=== PATIENT | male | born 1960 | race Hispanic/Latino ===

== ENCOUNTER → 2025-05-23 | Outpatient (CLI) | payer BC ==
[~2025-05-23] MED LIST: ASPI-449 PO; CHOL500051 PO; FLUO-341 PO; LEVO125T98 PO; LORA2TAB80 PO; MAGN71.52 PO; OMEG100033 PO; RAME8TAB24 PO; ROSU10TA72 PO; SILD100T PO
--- NOTE | 2025-05-24 06:49 | HMCIMG ---
EXAM: CR Cervical spine, 5 views. CLINICAL HISTORY: Pain. COMPARISON: None provided. FINDINGS: Mild loss of the normal cervical lordosis. Subtle retrolisthesis of the C5 vertebral body. Multilevel anterior osteophytes. Mild reduction in C5-C6 intervertebral disc height. Normal vertebral body heights. No acute fracture. The prevertebral soft tissues are within normal limits. The included lungs are clear. IMPRESSION: 1. No acute fracture. Subtle retrolisthesis of the C5 vertebral body. 2. Mild loss of the normal cervical lordosis could be secondary to muscular spasm. 3. Mild cervical spondylosis predominantly at the C5-C6 level. /[place]
--- NOTE | 2025-05-24 06:49 | HMCIMG ---
EXAM: CR Lumbar Spine, 4 views. CLINICAL HISTORY: Pain. COMPARISON: None provided. FINDINGS: Grade 1 anterolisthesis of L4 over L5 vertebral body by 5 mm. Multilevel anterior osteophytes. Normal intervertebral disc spaces. Normal vertebral body heights. No acute fracture. Soft tissues are within normal limits. IMPRESSION: 1. No acute bony changes. 2. Grade 1 anterolisthesis of L4 over L5 vertebral body by 5 mm. [facility]
== END | disposition home or self-care (01) ==
LOC: RAH 10:58
PROVIDERS: ATTEND Physical Medicine & Rehabilitation
DX: M47.812 Spondylosis without myelopathy or radiculopathy, cervical region (principal); M48.061 Spinal stenosis, lumbar region without neurogenic claudication; M43.16 Spondylolisthesis, lumbar region; M25.78 Osteophyte, vertebrae; M48.062 Spinal stenosis, lumbar region with neurogenic claudication; R29.898 Other symptoms and signs involving the musculoskeletal system; M54.2 Cervicalgia; M54.51 Vertebrogenic low back pain; M54.16 Radiculopathy, lumbar region
CPT/HCPCS: 72050; 72114

== ENCOUNTER → 2025-06-11 | Outpatient (CLI) | payer BC ==
--- NOTE | 2025-06-12 11:34 | HMCIMG ---
EXAM: MR Lumbar Spine Without Intravenous Contrast. CLINICAL HISTORY: Spinal stenosis in the lumbar region with neurogenic claudication. TECHNIQUE: Magnetic resonance images of the lumbar spine in multiple planes. CONTRAST: None. COMPARISON: Radiograph dated May 23, 2025. FINDINGS: For this examination, spinal levels were labeled assuming five [id number], lumbar-type vertebrae, with the inferior labeled L5. No acute fracture. Mild degenerative anterolisthesis of L4 over L5. Mild multilevel spondylosis is evident by small marginal osteophytes. Multilevel disc desiccation noted. Mild degenerative disc height reduction at the L4-L5 level. Facet joint arthropathy and mild facet joint synovitis at the L4-L5 level. Normal vertebral body and remaining disc heights. Modic type I changes in the contiguous endplates at the level. Hemangiomas are noted in the T11, L1, L4, and L5 vertebral bodies. Conus medullaris terminates at the T12-L1 level. No abnormal epidural masses. Small, left external pelvis noted. Individual spinal levels are described as follows: T12-L1: No disc bulge or herniation. No neural foraminal, lateral recess, or spinal canal stenosis. L1-L2: No disc bulge or herniation. No neural foraminal, lateral recess, or spinal canal stenosis. L2-L3: No disc bulge or herniation. No neural foraminal, lateral recess, or spinal canal stenosis. L3-L4: No disc bulge or herniation. No neural foraminal, lateral recess, or spinal canal stenosis. L4-L5: 7 mm anterolisthesis of L4 over L5 with uncovering of the posterior disc, ligamentum flavum thickening, and facet joint arthropathy, causing moderate canal narrowing with compression of the cauda equina and mild bilateral foraminal narrowing. No lateral recess stenosis. L5-S1: 4 mm disc osteophyte complex bulge and facet joint arthropathy causing mild indentation on the anterior thecal sac and mild bilateral foraminal narrowing. No lateral recess stenosis. IMPRESSION: Redemonstrated mild degenerative anterolisthesis of L4 over L5. Redemonstrated mild multilevel spondylosis. Multilevel disc desiccation. Mild degenerative disc height reduction at the L4-L5 level. Facet joint arthropathy and mild facet joint synovitis at the L4-L5 level. Moderate canal narrowing with compression of the cauda equina and mild bilateral foraminal narrowing at the L4-L5 level. Mild indentation on the anterior thecal sac and mild bilateral foraminal narrowing at the L5-S1 level. /[place]
== END | disposition home or self-care (01) ==
LOC: RAH 13:50
PROVIDERS: ATTEND Physical Medicine & Rehabilitation
DX: M47.816 Spondylosis without myelopathy or radiculopathy, lumbar region (principal); M48.062 Spinal stenosis, lumbar region with neurogenic claudication; M43.16 Spondylolisthesis, lumbar region; M65.98 Unspecified synovitis and tenosynovitis, other site; M51.369 Other intervertebral disc degeneration, lumbar region without mention of lumbar back pain or lower extremity pain; G83.4 Cauda equina syndrome; D18.09 Hemangioma of other sites; M51.379 Other intervertebral disc degeneration, lumbosacral region without mention of lumbar back pain or lower extremity pain; M48.07 Spinal stenosis, lumbosacral region; R29.898 Other symptoms and signs involving the musculoskeletal system
CPT/HCPCS: 72148

== ENCOUNTER 2025-09-08 22:58 | Emergency (ER) | payer BC, MEDICARE ==
[~2025-09-08] VITALS: Ht 165.1 cm; Wt 72.6 kg
--- NOTE | 2025-09-08 23:31 | NUR ---
ENEMA ADMINISTERED ORDERED
--- NOTE | 2025-09-09 00:30 | NUR ---
PATIENT HAD BOWEL MOVEMENT, REPORTED FEELING RELIEF
[2025-09-09 00:37] LABS: CREATININE 0.8 mg/dL (0.5-1.3); GLOMERULAR FILTR. RATE CALC 98.0 mL/min (>90); GLUCOSE,RANDOM 153.0 mg/dL (70-105); SODIUM SERUM 138.0 mmol/L (136-145); UREA NITROGEN, BLOOD 18.0 mg/dL (7-18)
[2025-09-09 00:42] LABS: ASPARTATE AMINOTRANSFERASE 33.0 U/L (10-37); TOTAL PROTEIN, SERUM 7.2 g/dL (6.0-8.3)
--- NOTE | 2025-09-09 00:50 | ERN ---
ED Note History of Present Illness Stated Complaint: CONSTIPATION Chief Complaint: Constipation Time Seen by MD: 23:31 Time Seen by Midlevel: 23:31 Dictation: The patient is a 65-year-old male who recently had lower back surgery in [place] who presents to the emergency department with complaints of constipation. Patient has been on hydrocodone for pain and has not had a bowel movement in five days. Patient reports generalized abdominal pain, denies any nausea or vomiting, denies any problems with the his back. Patient is ambulatory. Allergies: Coded Allergies: No Known Allergies (Unverified Allergy, Unknown, 04/27/25) Home Meds Active Scripts Lactulose (Lactulose) 10 Gram/15 Ml Solution, 30 ML PO BID for constipation, #500 ML 0 Refills Prov:MICHELLE SALEH ENTRY LEVEL MACHINE OPERATOR 09/09/25 Reported Medications Aspirin (Adult Low Dose Aspirin EC) 81 Mg Tablet.dr, 1 TAB PO DAILY for 30 Days, #30 TAB 0 Refills 04/28/25 [place]-3/Dha/Epa/Fish Oil (Fish Oil 1,000 mg Softgel) 1,000 Mg (120 Mg-180 Mg) Capsule, 1 CAP PO BID for 30 Days, #60 CAP 0 Refills 04/28/25 Magnesium Chloride (Slow-Mag) 71.5 Mg Tablet.dr, 71.5 MG PO DAILY, TAB 04/28/25 Cholecalciferol (Vitamin D3) (Vitamin D3) 125 Mcg (5000 Unit) Capsule, 1 CAP PO DAILY for 30 Days, #30 CAP 0 Refills 04/28/25 Ramelteon (Ramelteon) 8 Mg Tablet, 1 TAB PO HS 04/28/25 Sildenafil Citrate (Viagra) 100 Mg Tablet, 1 TAB PO DAILY 04/28/25 Lorazepam (Ativan) 2 Mg Tablet, 1 TAB PO HS PRN for ANXIETY 04/28/25 Levothyroxine Sodium (Unithroid) 125 Mcg Tablet, 1 TAB PO DAILY 04/28/25 Rosuvastatin Calcium (Rosuvastatin Calcium) 10 Mg Tablet, 1 TAB PO HS 04/28/25 Fluoxetine HCl (Fluoxetine HCl) 10 Mg Capsule, 1 CAP PO DAILY 04/28/25 Past Medical History Past Medical History: High Cholesterol Surgical History: None RN Note Reviewed/Agreed w/PFSH: Yes Review of System Dictation Constitutional: Negative for fever,chills, and weight loss Eyes: Negative for injury, pain,redness, and discharge ENT: Negative for injury,pain or swelling Cardiovascular: Negative for chest pain, palpitations, and edema Respiratory: Negative for shortness of breath, cough, and wheezing, Abdomen/GI: Negative for nausea, vomiting, diarrhea positive for abdominal pain, constipation Back: Negative for injury and pain : Negative for injury, bleeding and discharge MS/Extremity: Negative for injury and deformity Skin: Negative for rash, and discoloration Neuro: Negative for headache, weakness, numbness, tingling, and seizure Psych: Negative for suicide ideation, homicidal ideation, and hallucinations Initial Vital Sign VS Vital Signs Date Time Temp Pulse Resp B/P (MAP) Pulse Ox O2 Delivery O2 Flow Rate FiO2 09/08/25 23:02 98.2 62 18 145/66 96 Room Air* 0 21 Physical Exam Dictation Vital Signs reviewed General Appearance: Alert, oriented x 3, no acute distress, well developed, nourished. Head and Face: non-traumatic. Eyes: PERRL, pink conjunctivas, eyelid no trauma, anterior chamber with arcus senilis. Ears: Pinnas intact and no signs of trauma or erythema ear canals clear and no discharge TM no erythema Nose: No discharge, no bleeding. Oropharynx: Mouth normal, tongue pink. pharynx clear,no erythema, tonsils no exudates, no abscesses noted, mucous membrane moist Neck: Supple, non-tender, no thyromegaly, no masses, no JVD, no bruits Breast:Deferred Chest:No tenderness, no crepitus, no paradoxical movement, no retractions Lungs:Clear, well-ventilated, symmetric, no rales, no wheezing, no rhonchi, no stridor, good breath sounds bilaterally Heart: Regular rate, regular rhythm, no murmur, no gallops Vascular: no peripheral edema, Abdomen: Soft positive bowel sounds, distended, no guarding, nontender, no rebound, no masses no hepatomegaly, no splenomegaly, no Yousif's sign, no hernias. Rectal: Deferred Genital: Deferred Neurological: Normal speech, motor function intact, sensory function intact Musculoskeletal: Neck nontender, full range of motion, back nontender, full range of motion, Extremities: nontender, full range of motion Skin: Color pink, dry, no turgor, no rash, no lacerations, no abrasions, no contusions. Lymphatic: Deferred Results (Laboratory/Radiology) Laboratory/Radiology Laboratory Tests Test 09/09/25 00:21 09/09/25 01:12 White Blood Count 9.0 K/uL (4.8-10.8) Red Blood Count 4.45 MIL/uL (4.50-6.20) L Hemoglobin 13.8 g/dL (14.0-18.0) L Hematocrit 40.9 % (42-54) L Mean Corpuscular Volume 91.9 fL (79-99) Mean Corpuscular Hemoglobin 31.0 pg (27.0-33.0) Mean Corpuscular Hemoglobin Concent 33.7 g/dL (32.0-36.0) Red Cell Distribution Width 12.1 % (11.0-15.5) Platelet Count 262 K/uL (130-400) Mean Platelet Volume 10.5 fL (7.5-10.5) Immature Granulocyte % (Auto) 0.2 % (0-1) Neutrophils (%) (Auto) 77.0 % (40.0-77.0) Lymphocytes (%) (Auto) 14.2 % (21.0-51.0) L Monocytes (%) (Auto) 7.3 % (3.0-13.0) Eosinophils (%) (Auto) 0.9 % (0.0-8.0) Basophils (%) (Auto) 0.4 % (0.0-5.0) Neutrophils # (Auto) 6.9 K/uL (1.8-7.7) Lymphocytes # (Auto) 1.3 K/uL (1.0-4.8) Monocytes # (Auto) 0.7 K/uL (0.1-1.0) Eosinophils # (Auto) 0.08 K/uL (0.00-0.70) Basophils # (Auto) 0.04 K/uL (0.00-0.20) Absolute Immature Granulocyte (auto 0.02 K/uL (0-1) Nucleated Red Blood Cells 0.0 % (0.0-0.19) Sodium Level 138 mmol/L (136-145) Potassium Level 4.4 mmol/L (3.5-5.1) Chloride Level 99 mmol/L (101-111) L Carbon Dioxide Level 33 mmol/L (21-32) H Blood Urea Nitrogen 18 mg/dL (7-18) Creatinine 0.8 mg/dL (0.5-1.3) Glomerular Filtration Rate Calc 98 mL/min (>90) Random Glucose 153 mg/dL (70-105) H Total Calcium 9.5 mg/dL (8.5-10.1) Total Bilirubin 0.4 mg/dL (0.2-1.0) Aspartate Amino Transf (AST/SGOT) 33 U/L (10-37) Alanine Aminotransferase (ALT/SGPT) 26 U/L (12-78) Alkaline Phosphatase 75 U/L (50-136) Total Protein 7.2 g/dL (6.0-8.3) Albumin 3.3 g/dL (3.5-5.0) L Urine Color LIGHT-YELLOW (YELLOW) Urine Appearance CLEAR (CLEAR) Urine pH 7.0 (5.0-8.0) Urine Specific [place] 1.015 (1.001-1.031) Urine Protein NEGATIVE mg/dL (NEGATIVE) Urine Glucose (UA) NEGATIVE mg/dL (NEGATIVE) Urine Ketones NEGATIVE mg/dL (NEGATIVE) Urine Occult Blood NEGATIVE (NEGATIVE) Urine Nitrate NEGATIVE (NEGATIVE) Urine Bilirubin NEGATIVE mg/dL (NEGATIVE) Urine Urobilinogen 0.2 mg/dL (0.2-1.0) Urine Leukocyte Esterase NEGATIVE Marie/uL Labs Reviewed?: Yes ED Course ED Course Orders Procedure Category Date Status Time *Nursing CPOE 09/08/25 Transmitted Communication: 23:29 Cbc With Differential LAB 09/08/25 Complete 23:40 Comprehensive LAB 09/08/25 Complete Metabolic Panel 23:40 Urinalysis Profile LAB 09/08/25 Complete 23:40 Abd 1vw RAD 09/08/25 Taken 23:40 Bladder Scan CPOE 09/08/25 Transmitted 23:40 Vital Signs Date Time Temp Pulse Resp B/P (MAP) Pulse Ox O2 Delivery O2 Flow Rate FiO2 09/09/25 02:19 98.1 68 18 138/62 100 Room Air* 0 21 09/08/25 23:07 98.2 62 18 145/66 100 Room Air 0 09/08/25 23:02 98.2 62 18 145/66 96 Room Air* 0 21 Medical Decision Making MDM The patient is a 65-year-old male who recently had lower back surgery in [place] who presents to the emergency department with complaints of constipation. Patient has been on hydrocodone for pain and has not had a bowel movement in five days. Patient reports generalized abdominal pain, denies any nausea or vomiting, denies any problems with the his back. Patient is ambulatory. CBC showed no leukocytosis, mild anemia, chemistry showed no electrolyte imbalance, urinalysis unremarkable, normal renal function. Patient received an enema and reports feeling better after bowel movement. Patient at this time is requesting to be discharged. Patient also was able to fully void and empty bladder. Patient will be discharged to follow up with the PCP. Differential diagnosis: Constipation, bowel obstruction, dehydration, urinary obstruction Need for hospitalization: Patient does not meet criteria for hospitalization. There are no social concerns with this patient. DX & DISP Disposition: Discharge Departure Impression: Primary Impression: Constipation Condition: Stable Scripts Lactulose (Lactulose) 10 Gram/15 Ml Solution 30 ML PO BID for constipation, #500 ML 0 Refills Prov: MICHELLE SALEH 09/09/25 Additional Instructions: your labs were unremarkable,. please follow up with PCP in 1-2 days. Continue oral hydration as tolerated. Increase fiber intake. FOLLOW-UP WITH PRIMARY CARE PROVIDER IN 1 TO 2 DAYS. TAKE MEDICATIONS DIRECTED HERE IN THE EMERGENCY ROOM. OKAY TO CONTINUE HOME MEDICATIONS UNLESS OTHERWISE DISCUSSED DURING YOUR VISIT IN THE EMERGENCY ROOM TODAY. RETURN TO YOUR NEAREST EMERGENCY ROOM IF SYMPTOMS WORSEN OR IF THERE IS NO IMPROVEMENT. CALL 911 IF YOU NEED IMMEDIATE ASSISTANCE. TAKE TYLENOL [id number] NEEDED AND IF NO CONTRAINDICATIONS ARE PRESENT. INCREASE ORAL HYDRATION. A WOUND CULTURE OR URINE CULTURE WAS ORDERED HERE IN THE EMERGENCY ROOM DEPARTMENT PLEASE FOLLOW-UP WITH PRIMARY CARE PROVIDER AND ADVISE THEM TO GET REPEAT PORTS FROM OUR FACILITY. IF YOU HAD ANY CANDIDO WRAP/SPLINTS THAT WERE APPLIED HERE, PLEASE DO NOT REMOVE THEM UNTIL YOU SEE YOUR PRIMARY CARE OR SPECIALTY. Referrals: FABIAN CHIU MD (PCP) Time of Disposition: 03:05 I have reviewed the case, and I agree with, Diagnosis and Plan MICHELLE SALEH Sep 09, 2025 00:50
[2025-09-09 00:53] LABS: IMMATURE GRANULOCYTE ABSOLUTE 0.02 K/uL (0-1); NUCLEATED RED BLOOD CELLS 0.0 % (0.0-0.19); PLATELET COUNT (AUTO) 262 K/uL (130-400); RED BLOOD CELL COUNT(AUTO) 4.45 MIL/uL (4.50-6.20); RED CELL DISTRIBUTION WIDTH 12.1 % (11.0-15.5); WHITE BLOOD COUNT (AUTO) 9.0 K/uL (4.8-10.8)
--- NOTE | 2025-09-09 01:15 | NUR ---
BLADDER SCANNER READING 400CC, PATIENT STATED HE WILL TRY TO URINATE
[2025-09-09 01:24] LABS: APPEARANCE,URINE CLEAR (CLEAR); GLUCOSE, URINE (UA) NEGATIVE (NEGATIVE); LEUKOCYTE ESTERASE ,URINE NEGATIVE Leu/uL (NEGATIVE); NITRATE,URINE NEGATIVE (NEGATIVE); OCCULT BLOOD,URINE NEGATIVE (NEGATIVE)
[2025-09-09 01:26] LABS: ADD UA MICROSCOPIC NO
[2025-09-09 03:25] VITALS: BP 132/78; PULSE 72; RESP 16; TEMP 98.3; O2SAT 100
--- NOTE | 2025-09-09 03:26 | HMCIMG ---
EXAM: CR Abdomen, 2 views. CLINICAL HISTORY: Pain. COMPARISON: None provided. FINDINGS: Nonobstructed nonspecific bowel gas pattern. No free air is evident. A small calcific density in the pelvis medial to the right ischial spine with central lucency, is probable a phlebolith. No aggressive appearing osseous lesion. Posterior orthopedic fixation at the L4-L5 level. IMPRESSION: No acute process. Nonobstructive bowel gas pattern. A small calcific density in the pelvis medial to the right ischial spine with central lucency, is probable a phlebolith. /[place]
== END 2025-09-09 03:52 | disposition home or self-care (01) ==
LOC: EDH 22:58
DX: K59.00 Constipation, unspecified (principal); E78.00 Pure hypercholesterolemia, unspecified; Z79.890 Hormone replacement therapy; Z79.82 Long term (current) use of aspirin; Z79.899 Other long term (current) drug therapy
CPT/HCPCS: 36415; 74018; 80053; 81003; 85025; 99284